=== PATIENT | female | born 1985 | race Two or more races ===

== ENCOUNTER 2018-12-03 18:06 | Emergency (ER) | payer MEDICAID ==
[~2018-12-03] VITALS: Ht 170.2 cm; Wt 83.0 kg
[~2018-12-03 18:06] MED LIST: METR500T; NITR100C44
[2018-12-03 18:30] VITALS: BP 129/87
[2018-12-03] MEDS ORDERED: KETOROLAC TROMETH 60MG/2ML VIAL IM ONE (23:54)
[2018-12-04] MEDS ORDERED: KETOROLAC TROMETH 60MG/2ML VIAL IM ONE (23:51)
== END 2018-12-04 00:10 | disposition home or self-care (01) ==
LOC: ER 18:06
DX: H92.01 Otalgia, right ear (principal); M26.621 Arthralgia of right temporomandibular joint; R51 Headache; J34.89 Other specified disorders of nose and nasal sinuses; Z79.899 Other long term (current) drug therapy
CPT/HCPCS: 96372; 99283; J1885